=== PATIENT | male | born 1980 | race Caucasian/White ===

== ENCOUNTER 2019-09-22 12:48 | Emergency (ER) | payer BC ==
--- NOTE | 2019-09-22 13:14 | UC ---
General HPI - HPI Summary HPI Summary: 39 y/o male presents to the urgent care requesting medication refill for his albuterol inhaler. He has PMHX of exercise and seasonal induce asthma. He felt mild nasal congestion this morning and realized his inhaler has . Sometimes he has felt in the past some chest tightness, but no wheezing w/ the cold weather, but nothing today. Pt denies fever, SOB, chest pain, wheezing, respiratory distress, cough, abdominal pain, N/V/D. - History of Current Complaint Stated Complaint: RX REFILL Time Seen by Provider: 09/22/19 13:13 Hx Obtained From: Patient Onset/Duration: Sudden Onset - run out of his albuterol inhaler yesterday, no wheezing Onset Severity: Mild Current Severity: None Associated Signs & Symptoms: Negative: Cough, Fever, SOB, Wheezing - Allergy/Home Medications Allergies/Adverse Reactions: Allergies Allergy/AdvReac Type Severity Reaction Status Date / Time No Known Allergies Allergy Verified 09/22/19 13:18 PMH/Surg Hx/FS Hx/Imm Hx Previously Healthy: Yes Respiratory History: Asthma - Surgical History Surgical History: Yes Surgery Procedure, Year, and Place: foot surgery - skin graft right foot. basal cell carcinoma removed - Family History Known Family History: Positive: None - Pt denies PMHX - Social History Occupation: Employed Full-time Lives: With Family Alcohol Use: Weekly Substance Use Type: None Smoking Status (MU): Never Smoked Tobacco - Immunization History Most Recent Tetanus Shot: 06/11/14 Review of Systems All Other Systems Reviewed And Are Negative: Yes Constitutional: Positive: Negative Skin: Positive: Negative Eyes: Positive: Negative ENT: Positive: Negative Respiratory: Positive: Negative Cardiovascular: Positive: Negative Gastrointestinal: Positive: Negative Genitourinary: Positive: Negative Motor: Positive: Negative Neurovascular: Positive: Negative Musculoskeletal: Positive: Negative Neurological: Positive: Negative Psychological: Positive: Negative Is Patient Immunocompromised?: No Physical Exam - Summary Physical Exam Summary: VITAL SIGNS: Reviewed. GENERAL: Patient is a well developed and nourished male who is sitting comfortably in the examining table. Patient is not in any acute respiratory distress. HEAD AND FACE: No signs of trauma. No ecchymosis, hematomas or skull depressions. No sinus tenderness. EYES: PERRLA, EOMI x 2, No injected conjunctiva, no nystagmus. No photophobia. EARS: Hearing grossly intact. Ear canals and tympanic membranes are within normal limits. MOUTH: Positive pharynx with mild erythema, no exudates, No B/L tonsillar enlargement , no exudate. Uvula in midline. edematous nasal mucosa w/ clear nasal discharge, clear PND NECK: Supple, trachea is midline, Positive anterior cervical lymphadenopathy, no JVD, no carotid bruit, no c-spine tenderness, neck with full ROM. No meningeal signs, no Kernig's or brudzinskis signs. CHEST: Symmetric, no tenderness at palpation LUNGS: Clear to auscultation bilaterally. No wheezing or crackles. CVS: Regular rate and rhythm, S1 and S2 present, no murmurs or gallops appreciated. ABDOMEN: Soft, non-tender. No signs of distention. No rebound no guarding, and no masses palpated. Bowel sounds are normal. EXTREMITIES: FROM in all major joints, no edema, no cyanosis or clubbing. NEURO: Alert and oriented x 3. No acute neurological deficits. Pt follows commands. SKIN: Dry and warm Triage Information Reviewed: Yes Course/Dx - Course Course Of Treatment: 39 y/o male presents to the urgent care requesting medication refill for his albuterol inhaler. He has PMHX of exercise and seasonal induce asthma. He felt mild nasal congestion this morning and realized his inhaler has . Sometimes he has felt in the past some chest tightness, but no wheezing w/ the cold weather, but nothing today. Pt denies fever, SOB, chest pain, wheezing, respiratory distress, cough, abdominal pain, N/V/D. Hx obtained. PE: WNL. Pt Rx albuterol inhaler as directed below and advised if he develops any wheezing to return to the urgent care of PCP for further management. Pt understood and agreed w/ plan of care. - Differential Dx - Multi-Symptom Differential Diagnoses: Other - medication refill for asthma, asthma exacerbation, bronchitis, influenza, - Diagnoses Provider Diagnosis: Medication refill Discharge ED - Sign-Out/Discharge Documenting (check all that apply): Patient Departure - d/C home All imaging exams completed and their final reports reviewed: No Studies - Discharge Plan Condition: Stable Disposition: HOME Prescriptions: Albuterol HFA INHALER* [Ventolin HFA Inhaler*] 1 - 2 puff INH Q6H PRN #1 mdi PRN Reason: Wheezing Patient Education Materials: Asthma (ED) Referrals: [facility] [place] [facility]FERR[facility] [Outside] - If Needed Additional Instructions: 1- Your albuterol inhaler refill has been sent to pharmacy. 2- If you develop wheezing or SOB please return to the urgent care or your PCP for further management - Billing Disposition and Condition Condition: STABLE Disposition: Home
[2019-09-22 13:18] VITALS: BP 132/82
== END 2019-09-22 13:38 | disposition home or self-care (01) ==
LOC: UCEAST 12:48
DX: Z76.0 Encounter for issue of repeat prescription (principal); J45.909 Unspecified asthma, uncomplicated; R09.81 Nasal congestion; R07.89 Other chest pain
CPT/HCPCS: 99202; G0463

== ENCOUNTER 2019-10-15 13:35 | Emergency (ER) | payer BC ==
[2019-10-15 13:44] VITALS: BP 146/92
--- NOTE | 2019-10-15 13:46 | UC ---
Skin Complaint HPI - HPI Summary HPI Summary: 39 yo male presents with rash. He tells me that 2 days ago he noticed some itching to his left lower back and then yesterday noticed a cluster of red rash that is more numerous today. HE is concerned this is shingles. Mild pain. Denies fever, chills, recent illness, weight loss/gain. He also has several patches of hyperpigmented skin on his torso and arms that are scaley and itching. Have been there for several weeks - History of Current Complaint Chief Complaint: UCRash Time Seen by Provider: 10/15/19 13:46 Stated Complaint: RASH ON BACK Hx Obtained From: Patient Onset/Duration: Sudden Onset Onset Severity: Mild Current Severity: Mild Pain Intensity: 2 - Allergy/Home Medications Allergies/Adverse Reactions: Allergies Allergy/AdvReac Type Severity Reaction Status Date / Time No Known Allergies Allergy Verified 10/15/19 13:45 PMH/Surg Hx/FS Hx/Imm Hx - Additional Past Medical History Additional PMH: BCC Respiratory History: Asthma - Surgical History Surgical History: Yes Surgery Procedure, Year, and Place: foot surgery - skin graft right foot. basal cell carcinoma removed - Family History Known Family History: Positive: None - Social History Occupation: Employed Full-time Lives: With Family Alcohol Use: Weekly Alcohol Amount: 2/DAY Substance Use Type: None Smoking Status (MU): Never Smoked Tobacco - Immunization History Most Recent Tetanus Shot: 06/11/14 Review of Systems All Other Systems Reviewed And Are Negative: No Constitutional: Positive: Negative Skin: Positive: Rash Respiratory: Positive: Negative Cardiovascular: Positive: Negative Neurological: Positive: Negative Psychological: Positive: Negative Physical Exam - Summary Physical Exam Summary: GENERAL: NAD. WDWN. No pain distress. SKIN: LEFT FLANK with cluster of mildly erythematous vesicles - no drainage, streaking, or bleeding. Mildly TTP. TORSO and b/l arms: Scattered patches of slight hyperpigmentation with scaley borders that is itchy. No erythema or drainage. No open wound. NECK: Supple. Nontender. No lymphadenopathy. CHEST: No accessory muscle use. Breathing comfortably and in no distress. CV: Pulses intact. Cap refill <2seconds NEURO: Alert. PSYCH: Age appropriate behavior. Triage Information Reviewed: Yes Vital Signs: Initial Vital Signs Temp 98.7 F 10/15/19 13:42 Pulse 94 10/15/19 13:42 Resp 15 10/15/19 13:42 BP 146/92 10/15/19 13:42 Pulse Ox 99 10/15/19 13:42 Vital Signs Reviewed: Yes Course/Dx - Course Course Of Treatment: Shingles to left flank. Suspect tinea to torso. - Diagnoses Provider Diagnosis: Shingles, Tinea Discharge ED - Sign-Out/Discharge Documenting (check all that apply): Patient Departure All imaging exams completed and their final reports reviewed: No Studies - Discharge Plan Condition: Stable Disposition: HOME Prescriptions: Ketoconazole 2 % CREAM (NF) [Nizoral 2% CREAM (NF)] 1 applic TOPICAL BID #1 tube ValACYclovir (*) [Valtrex 1 GM(*)] 1 gm PO TID #21 tab Patient Education Materials: Shingles (ED), Tinea Versicolor (ED) Referrals: No Primary Care Phys,NOPCP [Primary Care Provider] - Additional Instructions: If you develop a fever, shortness of breath, chest pain, new or worsening symptoms - please call your PCP or go to the ED immediately. Your blood pressure was high at todays visit. Please see your primary provider within 4 weeks for recheck and re-evaluation. - Billing Disposition and Condition Condition: STABLE Disposition: Home
== END 2019-10-15 14:07 | disposition home or self-care (01) ==
LOC: UCEAST 13:35
DX: B02.9 Zoster without complications (principal); B35.9 Dermatophytosis, unspecified; J45.909 Unspecified asthma, uncomplicated; Z85.828 Personal history of other malignant neoplasm of skin
CPT/HCPCS: 99212; G0463